=== PATIENT | female | born 1945 | race Caucasian/White ===

== ENCOUNTER 2021-09-18 06:27 | Emergency (ER) | payer MEDICARE, OTHER ==
[~2021-09-18] VITALS: Ht 154.9 cm; Wt 77.1 kg
[~2021-09-18 06:27] MED LIST: FENO145 PO; Glucophage1000 MG PO; METO50ER PO; OLME20 PO; PIOG15 PO
[2021-09-18] MEDS ORDERED: OXYM.05NI (08:08)
== END 2021-09-18 08:40 | disposition home or self-care (01) ==
LOC: ER 06:27
DX: R04.0 Epistaxis (principal); I10 Essential (primary) hypertension; E11.9 Type 2 diabetes mellitus without complications; E03.9 Hypothyroidism, unspecified; Z91.013 Allergy to seafood; Z88.1 Allergy status to other antibiotic agents; Z88.0 Allergy status to penicillin; Z79.899 Other long term (current) drug therapy; Z79.84 Long term (current) use of oral hypoglycemic drugs
CPT/HCPCS: 30901; 99283-25; A9270

== ENCOUNTER → 2021-12-24 | Outpatient (CLI) | payer MEDICARE, OTHER ==
[~2021-12-24] MED LIST changes: +OXYM.05NI
== END | disposition home or self-care (01) ==
LOC: LAB SHORT 11:17
DX: L98.9 Disorder of the skin and subcutaneous tissue, unspecified (principal)
CPT/HCPCS: 88305; 88312